=== PATIENT | female | born 1985 | race Native Hawaiian/Other Pacific Islander ===

== ENCOUNTER → 2024-10-13 13:23 | Outpatient (BNVA) | payer OTHER, SELFPAY | PROVIDERS: Visit Provider Surgery ==

== ENCOUNTER 2024-10-30 07:52 | Outpatient (AMB) | payer OTHER, SELFPAY ==
--- NOTE | 2024-10-30 10:56 | A.OFFVIS_ITS ---
VS Expanded 10/30/24 11:11 Height 5 ft 6 in Weight 231 lb BMI 37.3 Body Fat % 45.5 Body Fat Mass 105 Fat Free Mass 125.8 Visceral Fat Rating 11 Body Water % 39.1 Body Water Mass 90.2 Basal Metabolic Rate/Score 1,782 Intake Visit Reasons: [employer] BMI 37.3 Allergies No Known Allergies Allergy (Verified 10/30/24 10:56) Medication List - Last Reconciled 10/30/24 by Fab Russo MD albuterol sulfate 90 mcg/actuation 2 puffs inhalation Q6H PRN cetirizine 10 mg PO DAILY PRN HPI HPI [employer] SWL BMI 37.3: Details: Start time: 10.53am, End time: 11.45am ?I spent 47 minutes speaking with the patient on the phone plus an additional 5 minutes reviewing and updating records for a total of 52 minutes HPI Comments Details: Previous weight loss efforts: self diets Wakes up: 7am, sleeps: 11pm Breakfast: 8am (Gatorade protein bars, Atkins protein shakes) Lunch: 1pm (fast food) Dinner: 6pm (pasta, quinoa) Snacks: none Exercise: has home treadmill Fluids: Coffee: none, tea: Green tea daily (plain), soda: none, juice: Cranberry x1/month, ETOH: 2/month PFSH Medical History (Updated 10/30/24 @ 11:18 by Fab Russo MD) Back pain Asthma BMI 37.0-37.9, adult Obesity Telehealth Telehealth Telehealth Platform: Telephone Location of provider rendering services: practice address Location of patient: address on file Patient Identification confirmed using: Name, : Yes Telehealth method: voice only Patient verbally consented to treatment: Yes Patient verbally consented to billing insurance company: Yes Patient informed of any privacy concerns related to visit: Yes Minutes spent on Phone/Video with Pt.: 52 Assessment & Plan Assessment & Plan (1) Obesity: Code(s): E66.9 - Obesity, unspecified Category: Medical Qualifiers: Obesity type: due to excess calories Obesity classification: adult class 2 (BMI 35 - 39.9) Serious obesity comorbidity presence: without serious comorbidity Body mass index: BMI 37.0-37.9 Qualified Code(s): E66.812 - Obesity, class 2; E66.09 - Other obesity due to excess calories; Z68.37 - Body mass index [BMI] 37.0-37.9, adult Plan: 1.? Plan for lap sleeve gastrectomy. If diaphragmatic or ventral hernias are present at time of surgery, these will be repaired laparoscopically as well. I emphasized the importance of close follow-up, adherence to instructions and good communication. The surgery does not replace the need to change your lifestlyle which is the cause of the obesity problem. The surgery provides the motivation to try again to change your lifestyle, it reduces the appetite and make the transition to a better lifestyle easier and doubles the amount of weight you would lose compared to doing the lifestyle change without the surgery. You will need to be on a liquid diet with protein shakes for 2 weeks before surgery to maximize weight loss and boost your nutritional status to recover better from surgery and also for the first two weeks after surgery to let the stomach heal before we introduce other foods. After the first 2 weeks we will introduce protein bars and soft foods like scrambled eggs, cottage cheese and yogurt and after the 6th week will introduce meat, fish and cooked vegetables in small amounts. Over time you should be able to eat everything in small amounts. Side effects like nausea, vomiting, heartburn or abdominal pain are not common in the practice unless you are not following in the practice. This operation requires lifetime commitment to following in our practice and communication with me. You will much less weight and experience side effects if you don?t communicate or not following in the practice. Complications are rare and in our practice is about 1/10 of the national average. However, you can develop bleeding that may require transfusion (hasn?t happened for year in the practice), you may from complications (we did not have any deaths in the practice) and infections. Infections are usually a result of breakdown in communication or not understanding or following directions correctly. They are difficult to treat, they can happen during the first 6 weeks, they may require to be in the hospital for weeks or even months, not being able to eat by mouth and you may have drains and surgeries to try and correct the issue. Other risks and complications include possible conversion to an open procedure, leaks, small bowel obstruction, blood clots, cardiac, or pulmonary complications, as superintendent container terminal complications such as ulcers, insufficient weight loss and vitamin deficiencies. 2.? Nutritional counseling. Start with two 30gr protein Atkins Plus protein shakes (mix 4oz of Atkins Plus with 4oz low fat unsweetened almond milk each) at 8am-10am and 11am-1pm, 1 Gatorade protein bar at 2pm-4pm, dinner at 5pm (8 forks of protein and 8 forks of salad/vegetables), one more protein bar after dinner at 7pm-9pm. Another HALF protein bar at 10pm-11pm if you feel hungry. So you do 2 protein shakes, 2 to 2.5 protein bars and one meal per day. Meal to include lean meat (beef, fish, pork, turkey, chicken), or arabic yogurt, or egg whites, or beans with a salad with olive oil and fruits (berries, pears, apples, kiwi). Avoid salt, breads, potatoes, rice, pasta, desserts. 3. Each shake would be drunk slowly, like coffee in a period of 2 hours. 4. Cut each bar in 4 pieces and eat each piece in 30min ?to make each bar last 2 hours. 5. I emphasized the importance of measuring accurately the food portion and measure it when serving the food in plate 6. The meal portions include 8 full-size forks of meat and 8 full-size forks of salad. You always eat the meat portion but you can replace up to 4 forks for salad/vegetables with rice, potatoes or pasta, or a fruit ?if you like. The less you do it the better weight loss will be. 7. One full-size fork is what it can be scooped on the fork without falling aside and not what can be bit with the fork. Use regular forks like those you find in a typical restaurant. 8.? Please buy the body composition scale we discussed and send me weight measurements as soon as possible and then once a week. Always include your diet and exercise plan. 9. Start treadmill with an incline of 2.0 and speed of 3.0. Increase incline by 1 every 3 min to a max incline of 8.0, stay 3min at 8.0 and then return to 2.0 and repeat same steps until calorie goal is met. Goal is to burn 2000 calories per week on exercise, which means either 300 calories daily, or 400 calories 5 days per week, or 500 calories 4 days per week, or 650 calories 3 days per week. 10. Goal is to lose at least 1.5-2lbs per week 11. Goal to lose 10% of your weight before surgery, which is about 23lbs. Ultimate weight goal: 208lbs before surgery 12. Please follow the diet plan exactly without any change. If you don't like something about the plan or you feel hungry you need to communicate with me so I can help you revise the plan. You should not change the plan yourself 13. To be scheduled for EGD to assess the stomach's anatomy. The possibility of biopsies was discussed. Patient needs to avoid use of NSAIDs and aspirin for 1 week prior to EGD. You must be on liquids only the day before your endoscopy. Risks of perforation and bleeding was discussed with the patient. This will be an outpatient procedure with IV sedation. Orders: Orders Insulin Today E66.9 - Obesity, unspecified, J45.909 - Unspecified asthma, uncomplicated, Z68.37 - Body mass index [BMI] 37.0-37.9, adult IRON PROFILE Today E66.9 - Obesity, unspecified, J45.909 - Unspecified asthma, uncomplicated, Z68.37 - Body mass index [BMI] 37.0-37.9, adult Comprehensive Met. Panel Today E66.9 - Obesity, unspecified, J45.909 - Unspecified asthma, uncomplicated, Z68.37 - Body mass index [BMI] 37.0-37.9, adult Vitamin B12 and Folate Today E66.9 - Obesity, unspecified, J45.909 - Unspecified asthma, uncomplicated, Z68.37 - Body mass index [BMI] 37.0-37.9, adult Zinc Today E66.9 - Obesity, unspecified, J45.909 - Unspecified asthma, uncomplicated, Z68.37 - Body mass index [BMI] 37.0-37.9, adult Vitamin B1 Today E66.9 - Obesity, unspecified, J45.909 - Unspecified asthma, uncomplicated, Z68.37 - Body mass index [BMI] 37.0-37.9, adult Vitamin A Today E66.9 - Obesity, unspecified, J45.909 - Unspecified asthma, uncomplicated, Z68.37 - Body mass index [BMI] 37.0-37.9, adult Vitamin D 25-OH Total Today E66.9 - Obesity, unspecified, J45.909 - Unspecified asthma, uncomplicated, Z68.37 - Body mass index [BMI] 37.0-37.9, adult US abdomen comp w elastography Today E66.9 - Obesity, unspecified, J45.909 - Unspecified asthma, uncomplicated, Z68.37 - Body mass index [BMI] 37.0-37.9, adult Hemoglobin A1c Today E66.9 - Obesity, unspecified, J45.909 - Unspecified asthma, uncomplicated, Z68.37 - Body mass index [BMI] 37.0-37.9, adult H Pylori Breath Test Today E66.9 - Obesity, unspecified, J45.909 - Unspecified asthma, uncomplicated, Z68.37 - Body mass index [BMI] 37.0-37.9, adult Complete Blood Count Auto Diff Today E66.9 - Obesity, unspecified, J45.909 - Unspecified asthma, uncomplicated, Z68.37 - Body mass index [BMI] 37.0-37.9, adult Lipid Panel Today E66.9 - Obesity, unspecified, J45.909 - Unspecified asthma, uncomplicated, Z68.37 - Body mass index [BMI] 37.0-37.9, adult C Reactive Protein Today E66.9 - Obesity, unspecified, J45.909 - Unspecified asthma, uncomplicated, Z68.37 - Body mass index [BMI] 37.0-37.9, adult TSH reflex Free T4 Today E66.9 - Obesity, unspecified, J45.909 - Unspecified asthma, uncomplicated, Z68.37 - Body mass index [BMI] 37.0-37.9, adult Ferritin Today E66.9 - Obesity, unspecified, J45.909 - Unspecified asthma, uncomplicated, Z68.37 - Body mass index [BMI] 37.0-37.9, adult XR chest 2V Today E66.9 - Obesity, unspecified, J45.909 - Unspecified asthma, uncomplicated, Z68.37 - Body mass index [BMI] 37.0-37.9, adult ECG 12 lead EKG Today E66.9 - Obesity, unspecified, J45.909 - Unspecified asthma, uncomplicated, Z68.37 - Body mass index [BMI] 37.0-37.9, adult FL upper GI w air Today E66.9 - Obesity, unspecified, J45.909 - Unspecified asthma, uncomplicated, Z68.37 - Body mass index [BMI] 37.0-37.9, adult Referrals Behavioral Health Referral E66.9 - Obesity, unspecified, J45.909 - Unspecified asthma, uncomplicated, Z68.37 - Body mass index [BMI] 37.0-37.9, adult Nutrition/Dietitian Referral E66.9 - Obesity, unspecified, J45.909 - Unspecified asthma, uncomplicated, Z68.37 - Body mass index [BMI] 37.0-37.9, adult
[2024-10-30 11:11] VITALS: BMI 37.3
== END 2024-10-30 11:46 | disposition home or self-care (01) ==
LOC: HO.HBS 07:52
PROVIDERS: Visit Provider Surgery
DX: E66.812 Obesity, class 2 (principal); Z68.37 Body mass index [BMI] 37.0-37.9, adult
CPT/HCPCS: 98010

== ENCOUNTER → 2024-11-10 13:17 | Outpatient (BNVA) | payer OTHER, SELFPAY | PROVIDERS: Visit Provider Physician Assistant Surgical ==

== ENCOUNTER 2024-12-11 08:08 | Outpatient (REF) | payer OTHER, SELFPAY ==
--- NOTE | ~2024-12-11 | US_ITS ---
EXAMINATION: US ABDOMEN COMPLETE WITH LIVER ELASTOGRAPHY HISTORY: E66.9 - Obesity, unspecified TECHNIQUE: Real-time grayscale ultrasound imaging of the abdomen was performed and images were reviewed. COMPARISON: There are no prior studies for comparison. FINDINGS: Liver: The right lobe of the liver measures 17.2 cm in size. The left lobe of the liver measures 7.1 cm in size. The liver demonstrates normal homogeneous echotexture. No focal mass or intrahepatic biliary ductal dilatation is identified. There is normal hepatopedal flow in the portal vein. Ultrasound elastography of the liver was performed with 10 separate measurements of the liver parenchyma with the patient in the supine position. Measurements were obtained approximately 2 cm below Isabel's capsule and perpendicular to the capsule. Images are of satisfactory quality. The median shear wave velocity is 1.32 m/s. The interquartile range/median (IQR/median) is 0.08. Gallbladder and biliary tree: The gallbladder is unremarkable, without evidence of calculi, wall thickening, or pericholecystic fluid. There is no sonographic Beasley sign. The common bile duct is normal in caliber measuring 3 mm. Kidneys: The right kidney measures 10.4 cm in length. The left kidney measures 10.6 cm in length. The kidneys are unremarkable, without evidence of masses, hydronephrosis, or calculi. Pancreas: There is limited visualization of the pancreas. Spleen: The spleen is normal in size and contour, measuring 8.7 cm in length. Abdominal aorta and inferior vena cava: The visualized portions of the abdominal aorta and inferior vena cava are normal in caliber. There is no free fluid in the abdomen. US/US abdomen comp w elastography IMPRESSION: Mild enlargement of the right lobe of the liver. Otherwise unremarkable abdominal ultrasound. The median shear wave velocity in the liver is 1.32 m/s, corresponding to a median liver stiffness of 5.34 kPa. The IQR/median value is 0.08. This is indicative of a quality data set. Findings are indicative of a low elastography value which rules out advanced chronic liver disease in asymptomatic patients. REFERENCE: Society of Radiologists in Ultrasound Liver Stiffness Thresholds (2020): LIVER STIFFNESS THRESHOLDS: *Shear wave velocity less than 1.3 m/s (Liver Stiffness equal or less than 5 kPa): High probability of being normal. *Shear wave velocity less than 1.7 m/s (Liver Stiffness less than 9 kPa): In the absence of other known clinical signs, rules out compensated advanced chronic liver disease. *Shear wave velocity between 1.7-2.1 m/s (Liver Stiffness 9-13 kPa): Suggestive of compensated advanced chronic liver disease but need further test for confirmation. *Shear wave velocity between 2.1-2.4 m/s (Liver Stiffness 13-17 kPa): Rules in compensated advanced chronic liver disease. *Shear wave velocity greater than 2.4 m/s (Liver Stiffness over 17 kPa): Suggestive of clinically significant portal hypertension. QUALITY OF DATA SET: *IQR/Median value equal or less than 0.15 implies a quality data set. *IQR/Median value over 0.15 implies a poor quality data set. SIGNIFICANT CHANGE FROM PRIOR EXAM: Significant change if liver stiffness measurement is 10% or greater from prior exam. OTHER CONSIDERATIONS: The stage of liver fibrosis may be overestimated in the setting of acute hepatitis, liver inflammation, elevated liver function tests, hepatic vascular congestion, obstructive cholestasis, non-fasting state, and infiltrative diseases such as amyloidosis and lymphoma. In some patients with NAFLD, the liver stiffness thresholds for compensated advanced chronic liver disease may be lower. In causes other than viral hepatitis and NAFLD, liver stiffness thresholds are not well established. Electronically signed by: Vel Everett MD 12/12/2024 08:09 AM [facility]
== END 2024-12-11 08:09 | disposition home or self-care (01) ==
LOC: HO.US 08:08
PROVIDERS: Visit Provider Surgery
DX: E66.9 Obesity, unspecified (principal); Z68.37 Body mass index [BMI] 37.0-37.9, adult; J45.909 Unspecified asthma, uncomplicated
CPT/HCPCS: 76700; 76981

== ENCOUNTER → 2024-12-11 08:10 | Outpatient (BNV) | payer OTHER, SELFPAY | PROVIDERS: Visit Provider Radiology Diagnostic Radiology | DX: E66.9 Obesity, unspecified (principal); Z68.37 Body mass index [BMI] 37.0-37.9, adult | CPT/HCPCS: 76700 ==

== ENCOUNTER 2025-05-12 16:31 | Outpatient (AMB) | payer OTHER, SELFPAY ==
--- NOTE | 2025-05-12 16:32 | A.OFFPC_ITS ---
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 Asthma: - History of asthma managed with albuter ol as needed, no recent exacerbations, and no history of intubation. Seasonal allergies: - Reports seasonal allergies, managed sy mptomatically. Bunions: - Reports long-standing bunions on both feet, exacerbated by wearing heels, causing discomfort. Class 2 obesity Currently arteries appetite for weight loss being managed in a weight loss clinic comes in with paperwork for medical clearance for a BBL on to be performed in [facility] Review of Systems - Respiratory: Reports asthma, denies re cent exacerbations or intubation. - Allergic/Immunologic: Reports seasonal allergies. - Musculoskeletal: Reports bunions causi ng discomfort, denies joint pain or leg swelling. - Genitourinary: Reports irregular menst rual cycles post-contraceptive use, denies pain. - General: Denies sleep disturbances, sugey wel or bladder issues. 10-point ROS reviewed and negative excep t as noted in HPI Past Medical History - Asthma, managed with albuterol as need ed. - Seasonal allergies, managed symptomati massimo. Health Maintenance - Cervical cancer screening recommended due to age. - STI screening recommended due to sexua l activity. - Comprehensive blood work ordered inclu ding CBC, CMP, lipid panel, hemoglobin A1c, TSH, vitamin D, folate, B12, and infectious disease screening (Hep B, Hep C, HIV). Physical Exam General: Well-appearing, in no acute distress. Vital signs: Within normal limits. HEENT: Normocephalic, atraumatic. PERRLA, EOMI. Conjunctiva clear, sclera anicteric. Oropharynx clear, mucous membranes moist. TMs intact bilaterally. Neck: Supple, no lymphadenopathy, no thyromegaly, no JVD or carotid bruits. Cardiovascular: RRR, normal S1/S2, no murmurs, rubs, or gallops. Peripheral pulses 2+ and symmetric. No edema. Respiratory: Lungs clear to auscultation bilaterally, no wheezes, rales, or rhonchi. Normal effort. Abdomen: Soft, non-tender, non-distended. Normoactive bowel sounds. No hepatosplenomegaly, no masses. MSK: Full range of motion, no joint swelling or deformity. Normal gait. Reports bunions on both feet, with the right foot being worse. Skin: Warm, dry, intact. No rashes, lesions, or pallor. Neuro: Alert and oriented x3. Cranial nerves II-XII intact. Strength 5/5 throughout. Sensation intact. Reflexes 2+ symmetric. Normal coordination and gait. Psych: Appropriate mood and affect. Normal judgment and insight. Plan 1. Asthma - Continue current management with albut marcio as needed. Monitor for any exacerbations. 2. Seasonal Allergies - Continue symptomatic management of sea robert allergies. 3. Bunions - Referral to podiatry for further evalu ation and management. 4. Preventative Care - Cervical cancer screening and STI scre ening recommended. Comprehensive blood work ordered to establish baseline health status. Discussion Notes I discussed the importance of preventative care, including cervical cancer and STI screenings, given the patient's age and sexual activity. We reviewed the management of her asthma and seasonal allergies, emphasizing the continuation of current treatments. I also addressed her concerns about bunions and provided a r eferral to podiatry for further evaluation. We discussed the comprehensive blood work ordered to assess her overall health status. I advised her on the risks associated with surgery and the importance of a multidisciplinary approach to weight management. Patient was informed and verbally consented to the use of an ambient scribe for clinic note documentation during this visit. Patient Instructions - Continue using albuterol as needed for asthma management. - Follow up with podiatry for bunion sergey luation and management. - Schedule cervical cancer and STI scree nings as recommended. - Complete the ordered blood work to est ablish a baseline health status. [facility] Medical History Back pain Asthma BMI 37.0-37.9, adult Obesity Family History (Updated 05/12/25 @ 16:33 by Sarita Franz MA) Father No problems noted. Mother No problems noted. Social History (Updated 05/12/25 @ 16:34 by Sarita Franz MA) Housing: House Alcohol intake: current Alcohol intake frequency: holidays/special occasions only Patient Tobacco Use Status: Never used Tobacco service: No Current occupational status: employed Cognitive needs: No Hearing needs: No Vision needs: Yes (rx glasses) Questionnaire PHQ-9 Over the last 2 weeks, how often have you been bothered by any of the following problems? 1. Little interest or pleasure in doing things: not at all 2. Feeling down, depressed, or hopeless: not at all 3. Trouble falling or staying asleep, or sleeping too much: not at all 4. Feeling tired or having little energy: more than half the days 5. Poor appetite or overeating: not at all 6. Feeling bad about yourself - or that you are a failure or have let yourself or your family down: not at all 7. Trouble concentrating on things, such as reading the newspaper or watching television: not at all 8. Moving or speaking so slowly that other people could have noticed. Or the opposite - being so fidgety or restless that you have been moving around a lot more than usual: not at all 9. Thoughts that you would be better off or of hurting yourself in some way: not at all Total score: 2 Depression Screening Interpretation: Negative Depression Screening Done: Yes Source: Developed by Drs. Vel Ortiz, Jenny Woodward, Pablo Lindsay and colleagues, with an educational staci from [employer]. Thrive Questionnaire Date Thrive assessed: 05/06/25 I am a: Patient What is your living situation today?: I have a steady place to live Within the past 12 months, did the food you bought not last and you didn't have the money to get more?: Never true Within the past 12 months, did you worry whether your food would run out before you got money to buy more?: Sometimes True Do you have trouble paying for medicines?: No Do you have trouble getting transportation to medical appointments?: No Do you have trouble paying your heating and electricity bill?: No Do you have trouble taking care of your child, family member or friend?: No Do you have trouble with day-to-day activities such as bathing, preparing meals, shopping, managing finances, etc.?: No Are you currently unemployed and looking for a job?: No Are you interested in more education?: Yes Please select the resources that you would like help with: None Currently or been in a relationship where the following occur: No concerns reported THRIVE Score: 1 AUDIT C Alcohol Use Questionnaire (AUDIT-C) 1. How often do you have a drink containing alcohol?: Monthly or less 2. How many drinks containing alcohol do you have on a typical day when you are drinking?: 1 or 2 3. How often do you have six or more drinks on one occasion?: Monthly Total Score: 3 EMMA-7 AMB Questionnaire EMMA-7 Date EMMA - 7 assessed: 05/12/25 Feeling nervous, anxious, or on edge: 0 = Not at all Not being able to stop or control worryin = Not at all Worrying too much about different things: 0 = Not at all Trouble relaxin = Not at all Being so restless that it is hard to sit still: 0 = Not at all Becoming easily annoyed or irritable: 0 = Not at all Feeling afraid as if something awful might happen: 0 = Not at all Total EMMA-7 score (0-4 normal; 5-9 mild; 10-14 moderate; 15-21 severe): 0 Source: Developed by Drs. Vel Ortiz, Jenny Woodward, Pablo Lindsay and colleagues, with an educational staci from [employer]. Physical exam (Primary Care) BMI result Body Mass Index 32.7 Tobacco/Smoking Status: Tobacco use Status Tobacco use date assessed 05/12/25 05/12/25 16:34 Patient Tobacco Use Status Never used Tobacco 05/12/25 16:34 PHQ-9: PHQ-9 Score PHQ-9: Total score 2 05/12/25 16:34 Depression Screening Interpretation: Negative Thrive Assessment: Date of Thrive Assessment Date Thrive assessed 05/06/25 05/12/25 16:34 Currently or been in a relationship where the following occur: No concerns reported Coding Level of Care Code New Pt Level 3 (81067) Diagnoses Asthma J45.909 Establishing care with new doctor, encounter for Z76.89 Encounter for screening, unspecified Z13.9 Screening for diabetes mellitus Z13.1 Screening for hypertension Z13.6 Screening for lipoid disorders Z13.220 Screening for depression Z13.31 Counseling, unspecified Z71.9 Routine screening for STI (sexually transmitted infection) Z11.3 Screening for HIV (human immunodeficiency virus) Z11.4 Class 2 obesity E66.812 Encounter for preoperative assessment Z01.818 Bilateral bunions M21.611; M21.612 Assessment & Plan Assessment & Plan (1) Asthma: Code(s): J45.909 - Unspecified asthma, uncomplicated Category: Medical (2) Establishing care with new doctor, encounter for: Code(s): Z76.89 - Persons encountering health services in other specified circumstances (3) Encounter for screening, unspecified: Code(s): Z13.9 - Encounter for screening, unspecified (4) Screening for diabetes mellitus: Code(s): Z13.1 - Encounter for screening for diabetes mellitus (5) Screening for hypertension: Code(s): Z13.6 - Encounter for screening for cardiovascular disorders (6) Screening for lipoid disorders: Code(s): Z13.220 - Encounter for screening for lipoid disorders (7) Screening for depression: Code(s): Z13.31 - Encounter for screening for depression (8) Counseling, unspecified: Code(s): Z71.9 - Counseling, unspecified (9) Routine screening for STI (sexually transmitted infection): Code(s): Z11.3 - Encounter for screening for infections with a predominantly sexual mode of transmission (10) Screening for HIV (human immunodeficiency virus): Code(s): Z11.4 - Encounter for screening for human immunodeficiency virus [HIV] (11) Class 2 obesity: Code(s): E66.812 - Obesity, class 2 (12) Encounter for preoperative assessment: Code(s): Z01.818 - Encounter for other preprocedural examination Category: Medical (13) Bilateral bunions: Code(s): M21.611 - Bunion of right foot; M21.612 - Bunion of left foot Plan Orders: Orders Vitamin B6 Today Z13.9 - Encounter for screening, unspecified, Z76.89 - Persons encountering health services in other specified circumstances UA CC w/rflx Micro + Cult Today Z13.9 - Encounter for screening, unspecified, Z76.89 - Persons encountering health services in other specified circumstances TSH reflex Free T4 Today Z13.9 - Encounter for screening, unspecified, Z76.89 - Persons encountering health services in other specified circumstances Hepatitis C Antibody Today Z13.9 - Encounter for screening, unspecified, Z76.89 - Persons encountering health services in other specified circumstances Comprehensive Met. Panel Today Z13.9 - Encounter for screening, unspecified, Z76.89 - Persons encountering health services in other specified circumstances Hemoglobin A1c Today Z13.9 - Encounter for screening, unspecified, Z76.89 - Persons encountering health services in other specified circumstances Hepatitis B Surface Antibody Today Z13.9 - Encounter for screening, unspecified, Z76.89 - Persons encountering health services in other specified circumstances XR chest 2V Today Z01.818 - Encounter for other preprocedural examination Partial Thromboplastin Time Today Z01.818 - Encounter for other preprocedural examination Vitamin B1 Today Z13.9 - Encounter for screening, unspecified, Z76.89 - Persons encountering health services in other specified circumstances Vitamin B2 (Riboflavin) Today Z13.9 - Encounter for screening, unspecified, Z76.89 - Persons encountering health services in other specified circumstances Zinc Today Z13.9 - Encounter for screening, unspecified, Z76.89 - Persons encountering health services in other specified circumstances Vitamin D 1,25 dihydroxy Today Z13.9 - Encounter for screening, unspecified, Z76.89 - Persons encountering health services in other specified circumstances Vitamin B12 and Folate Today Z13.9 - Encounter for screening, unspecified, Z76.89 - Persons encountering health services in other specified circumstances Lipid Panel Today Z13.9 - Encounter for screening, unspecified, Z76.89 - Persons encountering health services in other specified circumstances Magnesium Today Z13.9 - Encounter for screening, unspecified, Z76.89 - Persons encountering health services in other specified circumstances Complete Blood Count Auto Diff Today Z13.9 - Encounter for screening, unspecified, Z76.89 - Persons encountering health services in other specified circumstances Hepatitis B Surface Antigen Today Z13.9 - Encounter for screening, unspecified, Z76.89 - Persons encountering health services in other specified circumstances HIV Ab/Ag Today Z13.9 - Encounter for screening, unspecified, Z76.89 - Persons encountering health services in other specified circumstances Prothrombin Time INR Today Z01.818 - Encounter for other preprocedural examination Referrals Podiatry Referral M21.611 - Bunion of right foot, M21.612 - Bunion of left foot
[2025-05-12 16:36] VITALS: BP 92/74; PULSE 93; RESP 16; TEMP 36.6; O2SAT 98; BMI 32.7
== END 2025-05-12 17:12 | disposition home or self-care (01) ==
LOC: HO.HMCFMS 16:31
PROVIDERS: Visit Provider Student in an Organized Health Care Education/Training Program
DX: J45.909 Unspecified asthma, uncomplicated (principal); E66.812 Obesity, class 2; M21.611 Bunion of right foot; M21.612 Bunion of left foot; Z01.818 Encounter for other preprocedural examination

== ENCOUNTER 2025-05-14 09:08 | Outpatient (AMB) | payer OTHER, SELFPAY ==
[2025-05-14 09:16] VITALS: BMI 31.8
--- NOTE | 2025-05-14 09:16 | A.OFFVIS_ITS ---
Vital Signs 05/14/25 09:16 Height 5 ft 6 in Weight 197 lb BMI 31.8 Intake Visit Reasons: Feet Pain Intake Note: Christopher is a 39 year old female who presents today as a new patient for an evaluation of her Bilateral bunion and foot pain. Pt states pain is located where her bunions are. She reports she has had the bunions for about 10 years. Patient has not tried any treatment for her bunions at this time and she has no previous imaging. Allergies No Known Allergies Allergy (Verified 05/14/25 09:17) Medication List - Last Reconciled 05/14/25 by Nathan Em DPM albuterol sulfate 90 mcg/actuation 2 puffs inhalation Q6H PRN cetirizine 10 mg PO DAILY PRN tirzepatide (weight loss) (Zepbound) 15 mg (0.5 mL) subcut QWEEK HPI HPI Feet Pain: Details: The patient is a 39-year-old female presenting with painful bunions bilateral feet, right foot worse than left. The bunions have been causing pain, leading her to walk with an altered gait, especially when wearing heels. There is no history of ankle sprains or double-jointedness, and the patient does not report any other medical conditions. The patient has not had any prior x-rays or surgical interventions for the bunions. She has explored non-surgical options such as bunion sleeves, however she has not tried them yet. 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 - Substance use: Occasional smoking, primarily hookah at social events, approximately once a month. [facility] Medical History (Updated 05/14/25 @ 09:45 by Nathan Em DPM) Encounter for preoperative assessment Back pain Asthma BMI 37.0-37.9, adult Obesity Family History (Updated 05/12/25 @ 16:33 by Sarita Franz MA) Father No problems noted. Mother No problems noted. Social History (Updated 05/12/25 @ 16:41 by Sarita Franz MA) Housing: House Alcohol intake: current Alcohol intake frequency: holidays/special occasions only Patient Tobacco Use Status: Never used Tobacco service: No Current occupational status: employed Cognitive needs: No Hearing needs: No Vision needs: Yes (rx glasses) Review of Systems Const All systems reviewed & are unremarkable except as noted in HPI and below Physical Exam Vital Signs: BMI result Body Mass Index 31.8 Extrem Other: *Bilateral Lower Extremity Focused Exam Vascular: DP/PT 2/4, CFT<3s to digits, TG warm to cool, no pedal edema Derm: No open wounds or lacerations. Neuro: Protective sensation grossly intact to bilateral lower extremities. MSK: Prominent medial eminence noted bilateral feet at the first metatarsop halangeal (MTP) joint without tenderness on palpation. Tracking hallux valgus deformity. Right 1st Metatarsophalangeal joint ROM: 75 ?. No crepitus. No pain on end range of motion. No Hypermobile right first ray. Left 1st Metatarsophalangeal joint ROM: 75 ?. No crepitus. No pain on end range of motion. No Hypermobile left first ray. No forefoot adductus noted. No digital deformities. Ankle inversion 3-1 bilateral lower extremities. Assessment & Plan Assessment & Plan (1) Hallux valgus (acquired), right foot: Code(s): M20.11 - Hallux valgus (acquired), right foot Category: Medical Plan: * Discussed the etiology of her bunions. * Rx right foot x-ray. * Discussed treatment options including bunion sleeves, orthotics, and eventually surgical intervention if her pain persists. * Discussed postop protocol for postop bunionectomy which includes protected weight-bearing in a surgical shoe, no high impact activity for at least 3 months, and likely would be out of work for at least 1 month. (2) Hallux valgus (acquired), left foot: Code(s): M20.12 - Hallux valgus (acquired), left foot Category: Medical Plan: * Discussed the etiology of her bunions. * Rx left foot x-ray. (3) Ankle ligament laxity: Code(s): M24.273 - Disorder of ligament, unspecified ankle Category: Medical Qualifiers: Laterality: unspecified laterality Qualified Code(s): M24.273 - Disorder of ligament, unspecified ankle Plan: * Patient has increased inversion to bilateral ankles. She denies history of sprains. She denies any unsteady gait due to her ankles, however it will be monitored as a potential etiology of her unsteady gait while wearing heels. She may require physical therapy versus further treatment in the future. Orders: Orders XR Foot Guillaume 3V Today M20.11 - Hallux valgus (acquired), right foot, M20.12 - Hallux valgus (acquired), left foot Coding Level of Care Code New Pt Level 3 (89645) Diagnoses Hallux valgus (acquired), right foot M20.11 Hallux valgus (acquired), left foot M20.12 Ligamentous laxity of ankle, unspecified laterality M24.273 Laterality: unspecified laterality Time Spent (min) 30
== END 2025-05-14 09:34 | disposition home or self-care (01) ==
LOC: HO.HPODS 09:09
PROVIDERS: Visit Provider Student in an Organized Health Care Education/Training Program
DX: M20.11 Hallux valgus (acquired), right foot (principal); M20.12 Hallux valgus (acquired), left foot; M24.273 Disorder of ligament, unspecified ankle
CPT/HCPCS: 99203

== ENCOUNTER 2025-05-14 09:08 | Outpatient (REF) | payer OTHER, SELFPAY ==
--- NOTE | ~2025-05-14 | XR_ITS ---
EXAMINATION: XR FOOT, GUILLAUME 3V CLINICAL INFORMATION: M20.12 - Hallux valgus (acquired), left foot COMPARISON: None available. TECHNIQUE: AP, lateral, and oblique views of each foot. FINDINGS: RIGHT FOOT: No fracture, dislocation, or suspicious bone lesion. There is mild hallux valgus. Joint spaces are preserved. Alignment is otherwise normal. Normal plantar arch. The midfoot and hindfoot appear normal. There is a tiny plantar calcaneal spur. There is no soft tissue abnormality. LEFT FOOT: No fracture, dislocation, or suspicious bone lesion. There is mild hallux valgus. Joint spaces are preserved. Alignment is otherwise normal. Normal plantar arch. The midfoot and hindfoot appear normal. There is a tiny plantar calcaneal spur. There is no soft tissue abnormality. XR/XR Foot Guillaume 3V IMPRESSION: 1. No acute findings of either foot. Mild hallux valgus bilaterally. Electronically signed by: Darrell Larkin MD 05/14/2025 11:51 AM EDT
--- NOTE | ~2025-05-14 | XR_ITS ---
EXAMINATION: XR CHEST CLINICAL INFORMATION: Z01.818 - Encounter for other preprocedural examination COMPARISON: None available. TECHNIQUE: 2 views of the chest were obtained. FINDINGS: The cardiac, hilar, and mediastinal contours are normal. The lungs are clear bilaterally. There is no pneumothorax or pleural effusion. There is no focal osseous or soft tissue abnormality. XR/XR chest 2V IMPRESSION: Normal chest. Electronically signed by: Darrell Larkin MD 05/14/2025 11:46 AM EDT
[2025-05-14 10:54] LABS: MANUAL DIFF FLAG NO
[2025-05-14 11:01] LABS: Hematocrit 38.6 % (37.0-47.0); Hemoglobin 12.9 g/dl (12.0-16.0); Imm Gran Abs Auto 0.01 X10*3/uL (0.00-0.03); Imm Gran Pct Auto 0.2 % (0.0-0.4); Lymphocytes Absolute Auto 1.1 X10*3/uL (1.2-4.9); Mean Corpuscular HGB Conc 33.4 g/dl (31.0-35.0); Mean Corpuscular Hemoglobin 30.9 pg (27.0-33.0); Mean Corpuscular Volume 92.6 fL (80.0-98.0); NRBC Abs Auto 0.000 X10*3/uL (0.0-0.012); NRBC Pct Auto 0.0 /100WBC (0.0-0.2); Platelet Count 270 X10*3/uL (160-400); Red Blood Count 4.17 X10*6/uL (4.20-5.50); White Blood Count 4.3 X10*3/uL (4.8-10.8)
[2025-05-14 11:05] LABS: Total Hemoglobin (HGBA1C) 3376.9178 umol/L
[2025-05-14 11:10] LABS: INTERNATIONAL NORM RATIO 0.9 (0.9-1.1); Prothrombin Time 10.8 SEC (10.9-12.4)
[2025-05-14 11:12] LABS: Partial Thromboplastin Time 29.4 SEC (26.7-34.1)
[2025-05-14 11:37] LABS: Alanine Aminotransferase 18 U/L (0-31); Albumin Level 3.9 g/dL (3.5-5.0); Alkaline Phosphatase 43 U/L (39-117); Anion Gap 6 (12-20); Aspartate Amino Transferase 18 U/L (5-31); Blood Urea Nitrogen 10 mg/dL (9-16); Calcium 8.9 mg/dL (8.4-10.2); Carbon Dioxide 31 mmol/L (22-29); Chloride 108 mmol/L (96-108); Cholesterol 154 mg/dL (<200); Estimated Glomerular Filt Rate > 60; HDL Cholesterol 44 mg/dL (>40); Magnesium 2.0 mg/dL (1.6-2.6); Potassium 4.4 mmol/L (3.3-5.1); Sodium 141 mmol/L (135-145); Total Protein 5.9 g/dL (6.5-8.0); Triglycerides 51 mg/dL (<150)
[2025-05-14 11:42] LABS: HBS Num1 6.85 mIU/mL (0-7.99); HBsAGNum1 0.34 S/CO (0.00-0.99); HIV Num 1 0.05 S/CO (0.00-0.99); Hepatitis B Surface Antigen Negative (Negative); ~HepC Num1 0.10 S/CO (0.00-0.79); ~Hepatitis B Surface Antibody NONREACTIVE (Nonreactive); ~Hepatitis C Antibody Nonreactive (Nonreactive)
[2025-05-14 11:45] LABS: Appearance Urine Clear; Glucose Urine UA Negative (Negative); PH 8.0 (5.0-9.0); Specific Gravity - Urine 1.010 (1.005-1.025); UMIC TRIGGER UACC YES
[2025-05-14 11:55] LABS: Folate > 20.0 ng/mL (> or = 4.0); Vitamin B12 698 pg/mL (200-900)
[2025-05-18 18:59] LABS: VITAMIN D (1,25 OH) D3 48 pg/mL; Vit D (1,25-Dihydroxy) Total 48 pg/mL (18-72); Vitamin D (1,25 OH) D2 <8 pg/mL
== END 2025-05-14 09:09 | disposition home or self-care (01) ==
LOC: HO.HKASLDS 09:08
PROVIDERS: Visit Provider Student in an Organized Health Care Education/Training Program
DX: M20.11 Hallux valgus (acquired), right foot (principal); M20.12 Hallux valgus (acquired), left foot; M24.273 Disorder of ligament, unspecified ankle; Z51.81 Encounter for therapeutic drug level monitoring; Z11.4 Encounter for screening for human immunodeficiency virus [HIV]; Z01.818 Encounter for other preprocedural examination; Z13.89 Encounter for screening for other disorder; Z76.89 Persons encountering health services in other specified circumstances; Z79.899 Other long term (current) drug therapy
CPT/HCPCS: 36415; 71046; 73630; 80053; 80061; 81001; 82607; 82652; 82746; 83036; 83735; 84207; 84252; 84425; 84443; 84630; 85025; 85610; 85730; 86706; 86803; 87340; 87389

== ENCOUNTER → 2025-05-14 10:59 | Outpatient (BNV) | payer OTHER, SELFPAY | PROVIDERS: Visit Provider Radiology Diagnostic Radiology | DX: Z01.818 Encounter for other preprocedural examination (principal); M20.10 Hallux valgus (acquired), unspecified foot | CPT/HCPCS: 71046; 73630 ==

== ENCOUNTER → 2025-05-25 13:34 | Outpatient (REF) | payer OTHER, SELFPAY ==
--- NOTE | 2025-05-25 13:37 | ECG_ITS ---
Test Reason : E66.01 Blood Pressure : */* mmHG Vent. Rate : 83 BPM Atrial Rate : 83 BPM P-R Int : 132 ms QRS Dur : 96 ms QT Int : 350 ms P-R-T Axes : 43 36 36 degrees QTcB Int : 411 ms Normal sinus rhythm Normal ECG No previous ECGs available Referred By: Fab Russo Electronically Signed By: SELENE MCCANN MD
== END ==
LOC: HO.CARD 13:34
PROVIDERS: PCP Student in an Organized Health Care Education/Training Program; Visit Provider Surgery
DX: E66.9 Obesity, unspecified (principal); Z68.37 Body mass index [BMI] 37.0-37.9, adult; J45.909 Unspecified asthma, uncomplicated
CPT/HCPCS: 93005

== ENCOUNTER → 2025-05-25 13:37 | Outpatient (BNV) | payer OTHER, SELFPAY | PROVIDERS: PCP Student in an Organized Health Care Education/Training Program; Visit Provider Internal Medicine Cardiovascular Disease | DX: E66.01 Morbid (severe) obesity due to excess calories (principal); Z68.37 Body mass index [BMI] 37.0-37.9, adult | CPT/HCPCS: 93010 ==

== ENCOUNTER 2025-05-29 08:09 | Outpatient (REF) | payer OTHER, SELFPAY ==
--- NOTE | ~2025-05-29 | XR_ITS ---
EXAMINATION: X-ray bilateral ankles CLINICAL INFORMATION: Ligament disorder COMPARISON: None TECHNIQUE: Left ankle 3 views. Right ankle 3 views. FINDINGS: Left ankle: No evidence of acute fracture, dislocation or suspicious bony lesions. Ankle mortise appears maintained. No talar dome OCD. The subtalar articulation is maintained. Small plantar calcaneal spur. No abnormal soft tissue calcification. Right ankle: No evidence of acute fracture, dislocation or suspicious bony lesions. Ankle mortise is appears maintained. No talar dome OCD. Alignment is anatomic. No abnormal soft tissue calcification. Small plantar calcaneal spur. XR/XR Ankle Guillaume min 3V IMPRESSION: No acute osseous findings. Electronically signed by: Arnav Madden MD 05/29/2025 03:28 PM EDT
== END 2025-05-29 08:10 | disposition home or self-care (01) ==
LOC: HO.XRAY 08:09
PROVIDERS: Absent Provider Student in an Organized Health Care Education/Training Program; PCP Student in an Organized Health Care Education/Training Program; Visit Provider Student in an Organized Health Care Education/Training Program
DX: M24.273 Disorder of ligament, unspecified ankle (principal); J45.909 Unspecified asthma, uncomplicated; D72.819 Decreased white blood cell count, unspecified; D64.9 Anemia, unspecified; E56.9 Vitamin deficiency, unspecified; E66.811 Obesity, class 1; Z68.31 Body mass index [BMI] 31.0-31.9, adult
CPT/HCPCS: 73610

== ENCOUNTER 2025-05-29 08:09 | Outpatient (AMB) | payer OTHER, SELFPAY ==
[2025-05-29 09:09] VITALS: BP 115/55; PULSE 96; TEMP 36.1; O2SAT 99; BMI 31.1
--- NOTE | 2025-05-29 09:09 | MHC.PC.OV ---
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 Low White Blood Cell Count: - Value is 4.3, below the normal cutoff of 4.8. - Asymptomatic; continued monitoring planned. Low Red Blood Cell Count: - Level at 4.17, slightly under normal range of 4.20. - No symptoms reported by the patient. Overweight and Consideration for Bariatric Surgery: - Discussed options for weight management including gastric sleeve. - Interested in balancing weight with improved health outcomes. - Patient actively exploring options and benefits of surgery. Elevation of B Vitamins: - Patient has elevated B1 and B6 levels, noted in laboratory findings. - No health concerns associated with these levels identified. Review of Systems - General: Reports feeling tired; denies recent illness or fever. - Skin: Denies rashes, lesions, or pallor. - Neurological: Denies headaches or dizziness. - Psychological: Denies depression or anxiety; reports feeling tired. 10-point ROS reviewed and negative except as noted in HPI Past Medical History - History of asthma - Seasonal allergies - Bunions - Previous consideration for BBL (Syrian Butt Lift) Health Maintenance - Laboratory findings: Slightly low WBC and RBC levels; Elevated Vitamin B1 and B6; Normal B12. - Previous assessment for weight management and consideration of bariatric surgery. Physical Exam General: Well-appearing, in no acute distress, but appears tired. Vital signs: Within normal limits. HEENT: Normocephalic, atraumatic. PERRLA, EOMI. Conjunctiva clear, sclera anicteric. Oropharynx clear, mucous membranes moist. TMs intact bilaterally. Neck: Supple, no lymphadenopathy, no thyromegaly, no JVD or carotid bruits. Cardiovascular: RRR, normal S1/S2, no murmurs, rubs, or gallops. Peripheral pulses 2+ and symmetric. No edema. Respiratory: Lungs clear to auscultation bilaterally, no wheezes, rales, or rhonchi. Normal effort. Abdomen: Soft, non-tender, non-distended. Normoactive bowel sounds. No hepatosplenomegaly, no masses. MSK: Full range of motion, no joint swelling or deformity. Normal gait. Skin: Warm, dry, intact. No rashes, lesions, or pallor. Neuro: Alert and oriented x3. Cranial nerves II-XII intact. Strength 5/5 throughout. Sensation intact. Reflexes 2+ symmetric. Normal coordination and gait. Psych: Appropriate mood and affect, but appears a little down. Normal judgment and insight. Plan 1. Low White Blood Cell Count - Monitor and repeat labs to identify potential patterns. - Currently asymptomatic; no immediate intervention. 2. Low Red Blood Cell Count - Continue monitoring with periodic blood tests. - No treatment required at this stage. 3. Overweight And Consideration For Bariatric Surgery - Explore weight management including gastric sleeve. - Referral for nutritional counseling and potential surgery evaluation. 4. Elevation Of B Vitamins - Elevated B vitamins not a current health concern. - Maintain normal dietary habits. Discussion Notes I reviewed the patient's laboratory results and found slightly low white blood cell and red blood cell counts, both of which are asymptomatic. We discussed monitoring these levels and plan to repeat the labs to assess for any patterns. The patient's vitamin B1 and B6 levels were elevated, but I reassured her that this is not concerning. We deliberated her interest in bariatric surgery, specifically a gastric sleeve, for weight management. I advised her to gather more information through forums and consider a referral to nutritional counseling. She acknowledged the monitoring plan and agreed to follow up in six months or sooner if necessary. We also reviewed her overall health, confirming that there were no urgent issues. Patient was informed and verbally consented to the use of an ambient scribefor clinic note documentation during this visit. Patient Instructions - Be sure to follow up on labs as discussed. - Consider additional advice and information regarding weight loss surgery. - Continue routine check-ups and consultations as necessary. - Maintain a balanced diet and normal daily activities. - Seek immediate medical care if experiencing new or worsening symptoms. Total time spent caring for the patient today was 30 minutes. This includes time spent before the visit reviewing the chart, time spent documenting, and time spent reviewing laboratory results, diagnostic imaging, medications, performing a medically necessary evaluation, counseling on diagnoses, care coordination, ordering appropriate tests, ordering appropriate medications. [facility] Medical History (Updated 05/29/25 @ 11:20 by Aris Stockton MD) Class 1 obesity Encounter for preoperative assessment Back pain Asthma BMI 37.0-37.9, adult Obesity Family History Father No problems noted. Mother No problems noted. Social History Housing: House Alcohol intake: current Alcohol intake frequency: holidays/special occasions only Patient Tobacco Use Status: Current someday Tobacco user service: No Current occupational status: employed Cognitive needs: No Hearing needs: No Vision needs: Yes (rx glasses) Questionnaire PHQ-9 Over the last 2 weeks, how often have you been bothered by any of the following problems? 1. Little interest or pleasure in doing things: not at all 2. Feeling down, depressed, or hopeless: not at all 3. Trouble falling or staying asleep, or sleeping too much: not at all 4. Feeling tired or having little energy: more than half the days 5. Poor appetite or overeating: not at all 6. Feeling bad about yourself - or that you are a failure or have let yourself or your family down: not at all 7. Trouble concentrating on things, such as reading the newspaper or watching television: not at all 8. Moving or speaking so slowly that other people could have noticed. Or the opposite - being so fidgety or restless that you have been moving around a lot more than usual: not at all 9. Thoughts that you would be better off or of hurting yourself in some way: not at all Total score: 2 Depression Screening Interpretation: Negative Depression Screening Done: Yes Source: Developed by Drs. Vel Ortiz, Jenny WoodwardPablo and colleagues, with an educational staci from [employer]. Thrive Questionnaire Date Thrive assessed: 05/06/25 I am a: Patient What is your living situation today?: I have a steady place to live Within the past 12 months, did the food you bought not last and you didn't have the money to get more?: Never true Within the past 12 months, did you worry whether your food would run out before you got money to buy more?: Sometimes True Do you have trouble paying for medicines?: No Do you have trouble getting transportation to medical appointments?: No Do you have trouble paying your heating and electricity bill?: No Do you have trouble taking care of your child, family member or friend?: No Do you have trouble with day-to-day activities such as bathing, preparing meals, shopping, managing finances, etc.?: No Are you currently unemployed and looking for a job?: No Are you interested in more education?: Yes Please select the resources that you would like help with: None Currently or been in a relationship where the following occur: No concerns reported THRIVE Score: 1 AUDIT C Alcohol Use Questionnaire (AUDIT-C) 1. How often do you have a drink containing alcohol?: Monthly or less 2. How many drinks containing alcohol do you have on a typical day when you are drinking?: 1 or 2 3. How often do you have six or more drinks on one occasion?: Monthly Total Score: 3 EMMA-7 AMB Questionnaire EMMA-7 Date EMMA - 7 assessed: 05/29/25 Feeling nervous, anxious, or on edge: 0 = Not at all Not being able to stop or control worryin = Not at all Worrying too much about different things: 0 = Not at all Trouble relaxin = Not at all Being so restless that it is hard to sit still: 0 = Not at all Becoming easily annoyed or irritable: 0 = Not at all Feeling afraid as if something awful might happen: 0 = Not at all Total EMMA-7 score (0-4 normal; 5-9 mild; 10-14 moderate; 15-21 severe): 0 Source: Developed by Drs. Vel Ortiz, Pablo Slaughter and colleagues, with an educational staci from [employer]. Physical exam (Primary Care) Vital Signs: Last Vital Signs Temp 97.0 F 05/29/25 09:09 Pulse 96 05/29/25 09:09 BP 115/55 L 05/29/25 09:09 Pulse Ox 99 05/29/25 09:09 Oxygen Delivery Method Room Air 05/29/25 09:09 BMI result Body Mass Index 31.1 Tobacco/Smoking Status: Tobacco use Status Tobacco use date assessed 05/29/25 05/29/25 09:12 Patient Tobacco Use Status Current someday Tobacco 05/29/25 09:30 PHQ-9: PHQ-9 Score PHQ-9: Total score 2 05/29/25 09:27 Depression Screening Interpretation: Negative Thrive Assessment: Date of Thrive Assessment Date Thrive assessed 05/06/25 05/29/25 09:12 Currently or been in a relationship where the following occur: No concerns reported Coding Level of Care Code Est Pt Level 4 (96780) Diagnoses Asthma J45.909 Asthma severity: mild Asthma persistence: intermittent Leukopenia, unspecified type D72.819 Leukopenia type: unspecified Erythropenia D64.9 Hypovitaminosis E56.9 Class 1 obesity E66.811 Assessment & Plan Assessment & Plan (1) Asthma: Code(s): J45.909 - Unspecified asthma, uncomplicated Category: Medical Qualifiers: Asthma severity: mild Asthma persistence: intermittent (2) Leukopenia: Code(s): D72.819 - Decreased white blood cell count, unspecified Qualifiers: Leukopenia type: unspecified Qualified Code(s): D72.819 - Decreased white blood cell count, unspecified (3) Erythropenia: Code(s): D64.9 - Anemia, unspecified (4) Hypovitaminosis: Code(s): E56.9 - Vitamin deficiency, unspecified (5) Class 1 obesity: Code(s): E66.811 - Obesity, class 1 Category: Medical Plan Orders: Referrals Nutrition/Dietitian Referral E66.811 - Obesity, class 1
== END 2025-05-29 09:52 | disposition home or self-care (01) ==
LOC: HO.HMCFMS 08:10
PROVIDERS: PCP Student in an Organized Health Care Education/Training Program; Visit Provider Student in an Organized Health Care Education/Training Program
DX: J45.909 Unspecified asthma, uncomplicated (principal); D72.819 Decreased white blood cell count, unspecified; D64.9 Anemia, unspecified; E56.9 Vitamin deficiency, unspecified; E66.811 Obesity, class 1

== ENCOUNTER 2025-05-29 08:29 | Outpatient (AMB) | payer OTHER, SELFPAY ==
--- NOTE | 2025-05-29 08:35 | A.OFFVIS_ITS ---
Intake Visit Reasons: fu With x-ray Intake Note: Christopher is a 39 year old female who presents today for a follow up on her bilateral bunions and x ray results. Pt denies any pain at this time and she currently has no questions or concerns at this time. FINDINGS: RIGHT FOOT: No fracture, dislocation, or suspicious bone lesion. There is mild hallux valgus. Joint spaces are preserved. Alignment is otherwise normal. Normal plantar arch. The midfoot and hindfoot appear normal. There is a tiny plantar calcaneal spur. There is no soft tissue abnormality. LEFT FOOT: No fracture, dislocation, or suspicious bone lesion. There is mild hallux valgus. Joint spaces are preserved. Alignment is otherwise normal. Normal plantar arch. The midfoot and hindfoot appear normal. There is a tiny plantar calcaneal spur. There is no soft tissue abnormality. XR/XR Foot Guillaume 3V IMPRESSION: 1. No acute findings of either foot. Mild hallux valgus bilaterally. Allergies No Known Allergies Allergy (Verified 05/29/25 09:09) HPI HPI fu With x-ray: Details: The patient is a 39-year-old female presenting with painful bunions bilateral feet and history of frequent falls due to her ankle giving out. She received x- rays and is here to discuss surgical planning. She believestThe bunions have been causing pain, leading her to walk with an altered gait, especially when wearing heels. She does note that however at her ankles give out when she is walking or wearing heels. She was unable to describe how often she sprains her ankles as she has not worn heels in several months. 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 - patient states that she is independent and has no support other than her 18-year-old son. [facility] Medical History Encounter for preoperative assessment Back pain Asthma BMI 37.0-37.9, adult Obesity Family History Father No problems noted. Mother No problems noted. Social History Housing: House Alcohol intake: current Alcohol intake frequency: holidays/special occasions only Patient Tobacco Use Status: Current someday Tobacco user service: No Current occupational status: employed Cognitive needs: No Hearing needs: No Vision needs: Yes (rx glasses) Review of Systems Const All systems reviewed & are unremarkable except as noted in HPI and below Physical Exam Extrem Other: *Bilateral Lower Extremity Focused Exam Vascular: DP/PT 2/4, CFT<3s to digits, TG warm to cool, no pedal edema Derm: No open wounds or lacerations. Neuro: Protective sensation grossly intact to bilateral lower extremities. MSK: Prominent medial eminence noted bilateral feet at the first metata rsophalangeal (MTP) joint without tenderness on palpation. Tracking hallux valgus deformity. Right 1st Metatarsophalangeal joint ROM: 75 ?. No crepitus. No pain on end range of motion. No Hypermobile right first ray. Left 1st Metatarsophalangeal joint ROM: 75 ?. No crepitus. No pain on end range of motion. No appreciated Hypermobility left first ray. Functional hallux limitus on weight-bearing left foot. No forefoot adductus noted. No digital deformities. Ankle inversion 3-1 bilateral lower extremities. Negative anterior drawer sign. Results Reviewed Results Reviewed: Podiatry X-ray Read: 05/14/2025 X-ray right foot 3 views (AP, MO, Lateral) reviewed which shows 1st inter metatarsal angle 11 degrees, tibial sesamoid position 2, metatarsus adductus angle approximately 18. No joint space narrowing. Second through 4th digits are abducted. Bone density is within normal limits. No evidence of swelling, foreign body, or calcifications. I personally reviewed the imaging and my findings are listed above. Podiatry X-ray Read: 05/14/2025 X-ray left foot 3 views (AP, MO, Lateral) reviewed which shows 1st intermetatarsal angle of 6 degrees with metatarsus adductus angle of 23 degrees, true IM angle of approximately 15 degrees. Tibial sesamoid position of 2. No joint space narrowing. Second through 4th digits are abducted. Bone density is within normal limits. No evidence of swelling, foreign body, or calcifications. I personally reviewed the imaging and my findings are listed above. Assessment & Plan Assessment & Plan (1) Hallux valgus (acquired), right foot: Code(s): M20.11 - Hallux valgus (acquired), right foot Category: Medical Plan: * Reviewed right foot x-rays with the patient. * Discussed treatment options including bunion sleeves, orthotics, and eventually surgical intervention if her pain persists. Surgical treatment options would include MIS bunionectomy versus Lapidus correction. * Discussed postop protocol for MIS bunionectomy which includes protected weight-bearing in a surgical shoe, no high impact activity for at least 3 months, and likely would be out of work for at least 1 month. * Explained that since this is her right foot, she would not be able to drive for at least 4-6 weeks after surgery. (2) Hallux valgus (acquired), left foot: Code(s): M20.12 - Hallux valgus (acquired), left foot Category: Medical Plan: * Reviewed left foot x-rays with the patient. * Discussed treatment options including bunion sleeves, orthotics, and eventually surgical intervention if her pain persists. Surgical treatment options would include 1st tarsometatarsal joint fusion, 2nd through 3rd tarsometatarsal joint correction versus MS metatarsal osteotomies. * Discussed postop protocol would include nonweightbearing for 6 weeks followed by protected weight-bearing for another 4-6 weeks. No high impact activities for at least 3 months. (3) Ankle ligament laxity: Code(s): M24.273 - Disorder of ligament, unspecified ankle Category: Medical Qualifiers: Laterality: unspecified laterality Qualified Code(s): M24.273 - Disor asad of ligament, unspecified ankle Plan: * Rx bilateral x-rays, stress views * Patient will likely require an MRI for evaluation of lateral ankle ligaments. * Recommended ankle compression sleeves to be worn when ambulating. * Referred to physical therapy for strengthening and proprioceptive training. * Discussed surgical treatment in the form of lateral ankle reconstruction if conservative treatment options fail. * Follow up in 2 weeks (4) Metatarsus adductus of both feet: Code(s): Q66.221 - Congenital metatarsus adductus, right foot; Q66.222 - Congenital metatarsus adductus, left foot Category: Medical Plan: * Explained that she will likely require correction of her met adductus of her 2nd and 3rd and possibly 4th tarsometatarsal joints of her left foot, and potentially the right foot in order to properly correct her hallux valgus deformity. Orders: Orders XR Ankle Guillaume min 3V Today M24.273 - Disorder of ligament, unspecified ankle Coding Level of Care Code Est Pt Level 4 (00764) Diagnoses Hallux valgus (acquired), right foot M20.11 Hallux valgus (acquired), left foot M20.12 Ligamentous laxity of ankle, unspecified laterality M24.273 Laterality: unspecified laterality Metatarsus adductus of both feet Q66.221; Q66.222 Time Spent (min) 45
== END 2025-05-29 09:18 | disposition home or self-care (01) ==
PROVIDERS: PCP Student in an Organized Health Care Education/Training Program; Visit Provider Student in an Organized Health Care Education/Training Program
DX: M20.11 Hallux valgus (acquired), right foot (principal); M20.12 Hallux valgus (acquired), left foot; M24.273 Disorder of ligament, unspecified ankle; Q66.221 Congenital metatarsus adductus, right foot; Q66.222 Congenital metatarsus adductus, left foot
CPT/HCPCS: 99214

== ENCOUNTER 2025-05-29 10:46 | Outpatient (AMB) | payer OTHER, SELFPAY ==
--- NOTE | 2025-05-29 11:00 | A.OFFWM_ITS ---
Intake Intake Visit Reasons: OV BH Intake Allergies No Known Allergies Allergy (Verified 06/19/25 08:49) [facility] Medical History Class 1 obesity Encounter for preoperative assessment Back pain Asthma BMI 37.0-37.9, adult Obesity Surgical History (Updated 06/08/25 @ 06:54 by Shahana Shirley RN) Hx of tubal ligation Family History Father No problems noted. Mother No problems noted. Social History Housing: House Are you a primary respiratory care program director to a significant other at home: No Do you presently have visiting nurse or other home services: No Alcohol intake: current Alcohol intake frequency: holidays/special occasions only Patient Tobacco Use Status: Current someday Tobacco user Tobacco use type: Cigarette service: No Current occupational status: employed Cognitive needs: No Hearing needs: No Vision needs: Yes (rx glasses) Behavioral Health Assessment Weight Management Therapy Therapy Notes Details PT is a 39 years old female, who presents for a visit to complete BH assessment as part of surgical weight loss program. Presenting Concerns Referral Source WMP-Provider. Reason for referral Completion of behavioral health assessment as part of process for weight-loss surgery. Precipitating Event Obesity. Living Situation Current Living Situation Own At risk of losing current housing? No Satisfied with current living situation? Yes Comments PT Lives with her 2 children. Food/Weight/Diet Expectations of change PT started the program on 10/30/24 at 231Lbs, and the initial goal was to lose 10% of her weight before surgery, which is about 23lbs. Ultimate weight goal: 208lbs before surgery. PT reports her most recent weight was 194Lbs as of 05/27/25. Patient Wants to be at her healthy weight. PT is implementing the following: Current meal plan: 2 shakes, 1 bar and 1 meal at day. Exercise plan: treadmill. Scale: yes Communication with provider: yes, Wednesdays. History/Relationship with food Growing up she had to finish everything served, leading to overeat even when feeling full. In the past she has adopted unhealthy habits such as skipping meals when has busy work days. She has good eating habits in general, is not picky and tries to choose healthier food choices. At current work, her breaks are respected and her current life routine goes along to her weight-loss plan. History/Relationship with weight PT reports she has always been overweight since childhood. PT reports weight-gain with contraceptives' shot. In the last 10 years, the patient's Lowest weight was 185Lbs and highest 240Lbs. History/Relationship with dieting Gym, self-diet. OTC pills - didn't loss anything. Zepbound 2024 - Lost about 30Lbs. Binge Eating Do you frequently eat large amounts of food in short periods of time, not feeling physically hungry? No Do you feel out of control when you eat a large amount of food in a short period of time? No Do you eat large amounts of food rapidly and typically alone? No Night Eating Do you wake up at least once during the night to eat? No If you wake up in the night, do you find that it is necessary to eat something in order to fall back asleep? No Do you have little or no appetite in the morning and feel very hungry in the evening, often overeating between dinner and when you go to bed? No Social History Family history and relationship PT is single but has been from kids father 6 ago, they were together for 15 years and have 2 children. Parents are alive and they live in [place], Pt has 2 brother who also lives in [place]. Parental/Familial tie maker obligations Kids, they are 18 and 12. Developmental history and status Normal development. Currently WNL. Social support Parents, kids father. Community support some co-workers. Gnosticist/Spirituality None. Cultural/Ethnic information PT was born in [place], been in [place] 18 years ago. Legal Involvement and History Current or historical involvement with the legal system? None reported. Education Highest grade completed Some college. 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 Preferred learning style Written Currently enrolled in educational program? No Interested in further educational program? 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 No Meaningful activities phone games, outdoor activities. Financial Situation Describe current financial situation Comfortable Financial assistance? None Service Service? No Mental Health and Addiction Treatment Current/Past substance abuse? No Comments Alcohol: 1-2 times at month, 3 drinks. Cigarettes/Tobacco: None. Cannabis/Edibles: None reported. Current/Past addictive behavior concerns? No Psychiatric history The patient reports she is not currently engaged in any mental health treatment and denies any history of mental health crises or inpatient psychiatric care. She has no history or current concerns regarding suicidal ideation, suicide attempts, self-harm, or harm to others. Medical and Physical Health Summary Additional Medical History not covered in history None aditional Sexual History concerns None reported. Physical exam in the last year? Yes Pain Screening Current pain? No Pain in the last few months? Yes Comments Back pain. Medications Is the patient compliant with medications? Yes Does the patient have Chapa Guardian in place? Not applicable Does the patient use complimentary health approaches? Yes (bi-weekly apps with chiropractor. ) Trauma/Abuse History History of trauma? No Questionnaires PHQ-9 Over the last 2 weeks, how often have you been bothered by any of the following problems? 1. Little interest or pleasure in doing things: not at all 2. Feeling down, depressed, or hopeless: not at all 3. Trouble falling or staying asleep, or sleeping too much: not at all 4. Feeling tired or having little energy: not at all 5. Poor appetite or overeating: not at all 6. Feeling bad about yourself - or that you are a failure or have let yourself or your family down: not at all 7. Trouble concentrating on things, such as reading the newspaper or watching television: not at all 8. Moving or speaking so slowly that other people could have noticed. Or the opposite - being so fidgety or restless that you have been moving around a lot more than usual: not at all 9. Thoughts that you would be better off or of hurting yourself in some way: not at all Total score: 0 Depression Screening Interpretation: Negative Depression Screening Done: Yes 53512 - PHQ-9 Billing: Yes Source: Developed by Drs. Vel Ortiz, Jenny Woodward, Pablo Lindsay and colleagues, with an educational staci from [employer]. Binge Eating Scale Group 1 A. I don't feel self-conscious about my wt. or body size when I'm with others. B. I feel concerned about how I look to others, but it normally does not make me fell disappointed with myself C. I do get self-conscious about my appearance and wt. which makes me feel disappointed in myself. D. I feel very self-conscious about my wt. and frequently I feel intense shame and disgust for myself. I try to avoid social contacts because of my self- consciousness. Response Group 1: C Group 2 A. I don't have any difficulty eating slowly in the proper manner. B. Although I seem to gobble down foods, I don't end up feeling stuffed because of eating to much. C. At times, I tend to eat quickly and then, I feel uncomfortably full afterwards. D. I have the habit of bolting down my food, without really chewing it. When this happens I usually feel uncomfortably stuffed because I've eaten to much. Response Group 2: C Group 3 A. I feel capable to control my eating urges when I want to. B. I feel like I have failed to control my eating more than the average person. C. I feel utterly helpless when it comes to feeling in control of my eating urges. D. Because I feel so helpless about controlling my eating I have become very desperate about trying to get control. Response Group 3: C Group 4 A. I don't have the habit of eating when I'm bored. B. I sometimes eat when I'm bored, but often I'm able to get busy and get my mind off food. C. I have a regular habit of eating when I'm bored, but occasionally, I can use some other activity to get my mind off eating. D. I have a strong habit of eating when I'm bored. Nothing seems to help me breath the habit. Response Group 4: A Group 5 A. I'm usually physically hungry when I eat something. B. Occasionally, I eat something on impulse even though I really am not hungry. C. I have the regular habit of eating foods, that I might not really enjoy, to satisfy a hungry feeling even though physically, I don't need the food. D. Although I'm not physically hungry, I get a hungry feeling in my mouth that only seems to be satisfied when I eat a food, like sandwich, that fills my mouth. Sometimes, when I eat the food to satisfy my mouth hunger, I then spit the food out so I won't gain weight. Response Group 5: B Group 6 A. I don't feel any guilt or self-hate after I overeat. B. After I overeat, occasionally I feel guilt or self-hate. C. Almost all the time I experience strong guilt or self-hate after I overeat. Response Group 6: B Group 7 A. I don't lose total control of my eating when dieting even after periods when I overeat. B. Sometimes when I eat a forbidden food on a diet, I feel like I blew it and eat even more. C. Frequently, I have the habit of saying to myself, I've blown it now, why not go all the way, when I overeat on a diet. When that happens I eat more. D. I have a regular habit of starting a strict diets for myself but I break the diets by going on an eating binge. My life seems to be either a feast or famine. Response Group 7: A Group 8 A. I rarely eat so much food that I feel uncomfortably stuffed afterwards. B. Usually about once a month, I each such a quantity of food, I end up feeling very stuffed. C. I have regular periods during the month when I eat large amounts of food, either at mealtime or at snacks. D. I eat so much food that I regularly feel quite uncomfortable after eating and sometimes a bit nauseous. Response Group 8: B Group 9 A. My level of calorie intake does not go up very high or go down very low on a regular basis. B. Sometimes after I overeat, I will try to reduce my caloric intake to almost nothing to compensate for the excess calories I've eaten. C. I have a regular habit of overeating during the night. It seems that my routine is not to be hungry in the morning but overeat in the evening. D. In my adult years, I have had week-long periods where I practically starve myself. This follows periods when I overeat. It seems I live a life of either feast or famine. Response Group 9: A Group 10 A. I usually am able to stop eating when I want to. I know when enough is enough. B. Every so often, I experience a compulsion to eat which I can't seem to control. C. Frequently, I experience strong urges to eat which I seem unable to control, but at other times I can control my eating urges. D. I feel incapable of controlling urges to eat. I have a fear of not being able to stop eating voluntarily. Response Group 10: A Group 11 A. I don't have any problem stopping eating when I feel full. B. I usually can stop eating when I feel full but occasionally overeat leaving me feeling uncomfortably stuffed. C. I have a problem stopping eating once I start and usually I feel uncomfortably stuffed after I eat a meal. D. Because I have a problem not being able to stop eating when I want, I sometimes have to induce vomiting to relieve my stuffed feeling. Response Group 11: B Group 12 A. I seem to eat just as much when I'm with others, Family social gatherings as when I'm by myself. B. Sometimes, when I'm with other persons, I don't eat as much as I want to eat because I'm self-conscious about my eating. C. Frequently, I eat only a small amount of food when others are present, because I'm very embarrassed about my eating. D. I feel so ashamed about overeating that I pick times to overeat when I know no one will see me. I feel like a closet eater. Response Group 12: B Group 13 A. I eat three meals a day with only an occasional between meal snack. B. I eat 3 meals a day, but I also normally snack between meals. C. When I am snacking heavily, I get in the habit of skipping regular meals. D. There are regular periods when I seem to be continually eating, with no planned meals. Response Group 13: A Group 14 A. I don't think much about trying to control unwanted eating urges. B. At least some of the time, I feel my thoughts are pre-occupied with trying to control my eating urges. C. I feel that frequently I spend much time thinking about how much I ate or about trying not to eat anymore. D. It seems to me that most of my waking hours are pre-occupied by thoughts about eating or not eating. I feel like I'm constantly struggling not to eat. Response Group 14: C Group 15 A. I don't think about food a great deal. B. I have strong craving for food but they last only for brief periods of time. C. I have days when I can't seem to think about anything else but food. D. Most of my days seem to be pre-occupied with thoughts about food. I feel like I live to eat. Response Group 15: B Group 16 A. I usually know whether or not I'm physically hungry. I take the right portion of food to satisfy me. B. Occasionally, I feel uncertain about knowing whether or not I'm physically hungry. A these times it's hard to know how much food I should take to satisfy me. C. Even though I might know how many calories I should eat, I don't have any idea what is a normal amount of food for me. Response Group 16: A Binge Eating Score: 14 Score less than 17 Minimal Risk Score between 18-26 Moderate Risk Score between 27-46 High Risk Assessment & Plan Assessment & Plan (1) Adjustment disorder: Code(s): F43.20 - Adjustment disorder, unspecified (2) Pre-bariatric surgery psychological evaluation: Code(s): Z71.89 - Other specified counseling Plan Following a comprehensive behavioral health assessment?including review of the Binge Eating Scale, PHQ-9, mental status evaluation, and patient self-re port?there are currently no behavioral health contraindications to proceeding with bariatric surgery. The patient demonstrates appropriate insight, motivation, and psychological readiness for the procedure. No active psychiatric symptoms or maladaptive eating behaviors were identified that would impede surgical outcomes at this time. The patient is cleared from a behavioral health perspective to proceed with bariatric surgery and documentation can be submitted for insurance approval as indicated. PT will return for a follow-up behavioral health visit 1?4 weeks postoperatively to monitor psychological adjustment, reinforce coping strategies, and screen for any emerging concerns such as mood changes, adjustment difficulties, or disordered eating patterns. Additional behavioral health support will be provided as needed based on postoperative assessment. Next david: 1-4 weeks PO. [place] [address] Tele Psy Diag Eval Patient Type New Diagnoses Adjustment disorder F43.20 Pre-bariatric surgery psychological evaluation Z71.89 Additional Codes PHQ-9 - 78439 - PHQ-9 Billing: Yes ([id number]) Time Spent (min) 60
== END 2025-05-29 14:00 | disposition home or self-care (01) ==
LOC: HO.HBST 10:46
PROVIDERS: PCP Student in an Organized Health Care Education/Training Program; Visit Provider Counselor Mental Health
DX: F43.20 Adjustment disorder, unspecified (principal); Z71.89 Other specified counseling
CPT/HCPCS: 90791

== ENCOUNTER → 2025-05-29 12:16 | Outpatient (BNV) | payer OTHER, SELFPAY | PROVIDERS: Absent Provider Student in an Organized Health Care Education/Training Program; PCP Student in an Organized Health Care Education/Training Program; Visit Provider Radiology Diagnostic Ultrasound | DX: M77.31 Calcaneal spur, right foot (principal); M77.32 Calcaneal spur, left foot | CPT/HCPCS: 73610 ==

== ENCOUNTER 2025-06-08 06:44 | Day surgery (SDC) | payer OTHER, SELFPAY ==
--- NOTE | 2025-06-04 09:52 | P.CONAN_ITS ---
Documented by User: Amie Villarreal NP 06/04/25 09:52 HPI - Anesthesia Eval Consult details Narrative: 39yo F for Upper Endoscopy PMFSH Active Problems Active Problems: All Active Problems Metatarsus adductus of both feet (Acute) Class 1 obesity (Acute) Ankle ligament laxity (Acute) Hallux valgus (acquired), right foot (Acute) Hallux valgus (acquired), left foot (Acute) Encounter for preoperative assessment (Acute) BMI 34.0-34.9,adult (Acute) BMI 35.0-35.9,adult (Acute) BMI 36.0-36.9,adult (Acute) Back pain (Acute) Asthma (Acute) BMI 37.0-37.9, adult (Acute) Obesity (Acute) Past Medical History Medical History Class 1 obesity Encounter for preoperative assessment Back pain Asthma BMI 37.0-37.9, adult Obesity Family History Family History Father No problems noted. Mother No problems noted. Surgical History Surgical History (Updated 06/08/25 @ 06:54 by Shahana Shirley RN) Hx of tubal ligation Social History Social History Housing: House Are you a primary customer care coordinator to a significant other at home: No Do you presently have visiting nurse or other home services: No Alcohol intake: current Alcohol intake frequency: holidays/special occasions only Patient Tobacco Use Status: Current someday Tobacco user Tobacco use type: Cigarette Smoked in Last 30 Days: Yes Patient Interested in Nicotine Replacement: No Have you been hit, kicked, punched, or otherwise hurt by someone within the past year? If so, by whom?: No Are you DNR?: No Advance Directives: No Advance Directives Information Provided: Yes Poor oral hygiene: No service: No Current occupational status: employed Cognitive needs: No Hearing needs: No Vision needs: Yes (rx glasses) Meds Allergies Allergy/AdvReac Type Severity Reaction Status Date / Time No Known Allergies Allergy Verified 06/08/25 06:55 Home Medications ?Medication ?Instructions ?Recorded ?Confirmed ?Last Taken ?Type cetirizine 10 mg tablet 10 mg PO DAILY PRN allergies 10/13/24 06/08/25 06/08/25 History albuterol sulfate 90 mcg/actuation 2 puff inhalation Q 6H PRN 10/30/24 06/08/25 Unknown History aerosol inhaler Shortness Of Breath Assessment and Plan Assessment Anesthesia Assessment: Chart Reviewed Documented by User: Jasmyne Stephens MD 06/08/25 07:30 PMFSH Past Medical History Medical History Class 1 obesity Encounter for preoperative assessment Back pain Asthma BMI 37.0-37.9, adult Obesity Family History Family History Father No problems noted. Mother No problems noted. Surgical History Surgical History (Updated 06/08/25 @ 06:54 by Shahana Shirley RN) Hx of tubal ligation History of Problems with Anesthesia: No Social History Social History Housing: House Are you a primary customer care coordinator to a significant other at home: No Do you presently have visiting nurse or other home services: No Alcohol intake: current Alcohol intake frequency: holidays/special occasions only Patient Tobacco Use Status: Current someday Tobacco user Tobacco use type: Cigarette Smoked in Last 30 Days: Yes Patient Interested in Nicotine Replacement: No Have you been hit, kicked, punched, or otherwise hurt by someone within the past year? If so, by whom?: No Are you DNR?: No Advance Directives: No Advance Directives Information Provided: Yes Poor oral hygiene: No service: No Current occupational status: employed Cognitive needs: No Hearing needs: No Vision needs: Yes (rx glasses) Meds Allergies Allergy/AdvReac Type Severity Reaction Status Date / Time No Known Allergies Allergy Verified 06/08/25 06:55 Home Medications ?Medication ?Instructions ?Recorded ?Confirmed ?Last Taken ?Type cetirizine 10 mg tablet 10 mg PO DAILY PRN allergies 10/13/24 06/08/25 06/08/25 History albuterol sulfate 90 mcg/actuation 2 puff inhalation Q 6H PRN 10/30/24 06/08/25 Unknown History aerosol inhaler Shortness Of Breath Exam Airway Mallampati Class: II TM Dist: >3cm Neck ROM: Full Loose/Missing/Broken Teeth: No Heart: RRR Lungs: CTA Assessment and Plan Assessment Anesthesia Assessment: Anesthesia Plan Discussed Final Anesthetic Review History of Problems with Anesthesia: No NPO: Yes ASA Class: II Final Preanesthetic Review: Meds/Allgs Chart Reviewed, Consent Obtained/Reviewed and Anes Risks/Benef Reviewed Patient Risk: Low Procedure Risk: Intermediate Anesthetic Plan Anesthetic Plan: MAC: Disposition: Standard PACU
[2025-06-08] MEDS: Lactated Ringers 1,000 ML 80 ML IVCONT (07:02)
[2025-06-08 07:15] VITALS: BP 109/70; PULSE 99; RESP 18; TEMP 36.6; O2SAT 97
[2025-06-08 07:16] VITALS: BMI 31.9
--- NOTE | 2025-06-08 07:35 | MHC.SHP ---
Pre-Procedural Eval Section A - 24 Hr Update-Section A only Date of Service: 06/08/25 The patient is an INPATIENT: No The patient has been examined within 24 hours of the surgical procedure. The History & Physical has been completed within 30 days and I have reviewed it.: Yes Section B - Complete if H&P > 30 days Chief Complaint: Obesity, unspecified Relevant Family History (Specify if Yes): No Relevant Social History: None Present Medications: None Medical History: No relevant PMH History of Previous Operations: No relevant previous surgery Allergies: Allergies Allergy/AdvReac Type Severity Reaction Status Date / Time No Known Allergies Allergy Verified 06/08/25 06:55 Review of Systems Sugical H&P ROS: Negative: Constitution, Cardiovascular, Respiratory, Neurological, Psychiatric, Hem-Onc, Allergic/Immunologic, Gastrointestinal, Genitourinary, Musculoskeletal, Integumentary, Endocrine and Eyes/Ears/Nose/Throat Exam Surgical H&P Exam: Normal: HEENT, Normal: Heart, Normal: Lungs, Normal: Extremities, Normal: Abdomen, Normal: Skin and Normal: Neurological Plan Diagnosis/Plan: Unchanged (EGD to assess the stomach's anatomy. Risks of bleeding and perforation were discussed with the patient and she is in agreement with the plan.) I have reviewed the history and physical and performed a pertinent physical examination on my patient. No changes have occurred unless specified. Time Spent With Patient Time: Total time managing care of this patient today ____ minutes.
--- NOTE | 2025-06-08 07:36 | P.BOP_ITS ---
Brief Operative Note Date of Service: 06/08/25 Pre-op diagnosis: Obesity Post-op diagnosis: same Procedure: PROCEDURE DATE: 06/08/2025 PREOPERATIVE DIAGNOSIS: Obesity POSTOPERATIVE DIAGNOSIS: ?Same as above. Normal endoscopy PROCEDURE: Dapgddnu-ebifwq-aivpiozxwmmd with biopsies Surgeon: ?Juan Russo M.D.. Ph.D. Transfer Machine Operator: None ? Anesthesia: IV sedation Estimated blood loss: ?Minimal FINDINGS AND PROCEDURE: ? OPERATIVE INDICATIONS: ?The patient is a 39 year old female known to me who is interested in bariatric surgery. Based on this information I recommended an upper endoscopy to evaluate the patient's symptoms. Risks and complications of the surgery were discussed with the patient in advance particularly the possibility of perforation or bleeding that may require surgical intervention. The patient understood the risks and was in agreement with the plan. ? PROCEDURE: After informed consent was obtained by the patient, the patient was ?transferred to the Operating Room and was placed in the supine position.? After successful induction of IV sedation, a mouth block was inserted and the patient was placed in the left lateral decubitus position. An upper endoscopy was performed next, the oropharynx and esophagus appeared within the normal limits. There was no hiatal hernia. The z-line was smooth.. Two biopsies were obtained from the distal esophagus 2-3 cm proximal to the GE junction and two additional biopsies from the GE junction. The stomach was entered and it appeared to be of normal size. There was no gastritis. There was no stricture or ulcer. A biopsy was obtained from the gastric fundus and the antrum. No significant bleeding was noted from any of the biopsy sites. Retroflexion of the scope confirmed the presence of a normal GE junction. The scope was then advanced into the duodenum which appeared to be normal as well. At that point the duodenum ?and the stomach were decompressed and the scope was withdrawn from the patient's mouth. The patient extubated and was transferred in stable condition to the Recovery Room for further care. I was present and performed all steps of the procedure. There were no residents to assist with this case. Juan Russo M.D., Ph.D. Surgeon: Fab Russo MD Anesthesia: MAC Was an Transfer Machine Operator used for this Procedure?: No Estimated blood loss (mL): 0 IV fluids (mL): 400 Urine output (mL): 0 (No Chacko to record output) Pathology: other (1) antrum x1, 2) fundus x1, 3) GE junction x2, 4) distal esophagus x2) Condition: stable Disposition: PACU
[2025-06-08 07:58] VITALS: BP 91/55; PULSE 86; RESP 18; TEMP 36.6; O2SAT 99
[2025-06-08 08:16] VITALS: BP 102/59; PULSE 102; RESP 17; TEMP 36.6; O2SAT 98
== END 2025-06-08 08:59 | disposition home or self-care (01) ==
PROVIDERS: PCP Student in an Organized Health Care Education/Training Program; Visit Provider Surgery
PROC: 0DJ08ZZ Inspection of Upper Intestinal Tract, Via Natural or Artificial Opening Endoscopic (ICD-10-PCS; CPT 43235; principal; 2025-06-08 07:30)
DX: E66.09 Other obesity due to excess calories (principal); Z68.37 Body mass index [BMI] 37.0-37.9, adult; M54.9 Dorsalgia, unspecified; J45.909 Unspecified asthma, uncomplicated; Z79.899 Other long term (current) drug therapy
CPT/HCPCS: 43239; 88305; 88313; 88342; J2003; J2704

== ENCOUNTER → 2025-06-08 06:44 | Outpatient (BNV) | payer OTHER, SELFPAY | PROVIDERS: PCP Student in an Organized Health Care Education/Training Program; Visit Provider Surgery | DX: E66.9 Obesity, unspecified (principal); Z68.31 Body mass index [BMI] 31.0-31.9, adult | CPT/HCPCS: 43239 ==

== ENCOUNTER 2025-06-19 08:34 | Outpatient (AMB) | payer OTHER, SELFPAY ==
--- NOTE | 2025-06-19 08:47 | A.OFFVIS_ITS ---
Vital Signs 06/19/25 08:49 Height 5 ft 6 in Weight 197 lb BMI 31.8 Intake Visit Reasons: review ankle x-rays Intake Note: Christopher is a 39 year old female who presents today for a follow up on her ankle X-ray. She reports she is not using compression stocking and she has not been contacted by PT. Patient states overall she is doing well Allergies No Known Allergies Allergy (Verified 06/19/25 08:49) HPI HPI review ankle x-rays: Details: The patient is a 39-year-old female presenting with painful bunions bilateral feet and history of frequent falls due to her ankle giving out. She received ankle x-rays. She believes the bunions have been causing pain, leading her to walk with an altered gait, especially when wearing heels. She does note that however at her ankles give out when she is walking or wearing heels. She was unable to describe how often she sprains her ankles as she has not worn heels in several months. 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 - patient states that she is independent and has no support other than her 18-year-old son. [facility] Medical History Class 1 obesity Encounter for preoperative assessment Back pain Asthma BMI 37.0-37.9, adult Obesity Surgical History (Updated 06/08/25 @ 06:54 by Shahana Shirley RN) Hx of tubal ligation Family History Father No problems noted. Mother No problems noted. Social History Housing: House Are you a primary pharmacy customer care specialist to a significant other at home: No Do you presently have visiting nurse or other home services: No Alcohol intake: current Alcohol intake frequency: holidays/special occasions only Patient Tobacco Use Status: Current someday Tobacco user Tobacco use type: Cigarette service: No Current occupational status: employed Cognitive needs: No Hearing needs: No Vision needs: Yes (rx glasses) Review of Systems Const All systems reviewed & are unremarkable except as noted in HPI and below Physical Exam Vital Signs: BMI result Body Mass Index 31.8 Extrem Other: *Bilateral Lower Extremity Focused Exam Vascular: DP/PT 2/4, CFT<3s to digits, TG warm to cool, no pedal edema Derm: No open wounds or lacerations. Neuro: Protective sensation grossly intact to bilateral lower extremities. MSK: Prominent medial eminence noted bilateral feet at the first metatarsophalangeal (MTP) joint without tenderness on palpation. Tracking hallux valgus deformity. Right 1st Metatarsophalangeal joint ROM: 75 ?. No crepitus. No pain on end range of motion. No Hypermobile right first ray. Left 1st Metatarsophalangeal joint ROM: 75 ?. No crepitus. No pain on end range of motion. No appreciated Hypermobility left first ray. Functional hallux limitus on weight-bearing left foot. No forefoot adductus noted. No digital deformities. Ankle inversion 3-1 bilateral lower extremities. Negative anterior drawer sign. Results Reviewed Results Reviewed: Podiatry X-ray Read: 05/29/2025 X-ray right ankle 3 views (AP, Mortise, Lateral) reviewed which shows no fractures, dislocations, osteochondral defects, or gross abnormalities. Anatomic alignment of the tibiotalar joint. Bone density is within normal limits. No evidence of swelling, foreign body, or calcifications. I personally reviewed the imaging and my findings are listed above. Podiatry X-ray Read: 05/29/2025 X-ray left ankle 3 views (AP, Mortise, Lateral) reviewed which shows no fractures, dislocations, osteochondral defects, or gross abnormalities. Anatomic alignment of the tibiotalar joint. Bone density is within normal limits. No evidence of swelling, foreign body, or calcifications. I personally reviewed the imaging and my findings are listed above. Podiatry X-ray Read: 05/14/2025 X-ray right foot 3 views (AP, MO, Lateral) reviewed which shows 1st inter metatarsal angle 11 degrees, tibial sesamoid position 2, metatarsus adductus angle approximately 18. No joint space narrowing. Second through 4th digits are abducted. Bone density is within normal limits. No evidence of s welling, foreign body, or calcifications. I personally reviewed the imaging and my findings are listed above. Podiatry X-ray Read: 05/14/2025 X-ray left foot 3 views (AP, MO, Lateral) reviewed which shows 1st intermetatarsal angle of 6 degrees with metatarsus adductus angle of 23 degrees, true IM angle of approximately 15 degrees. Tibial sesamoid position of 2. No joint space narrowing. Second through 4th digits are abducted. Bone density is within normal limits. No evidence of swelling, foreign body, or calcifications. I personally reviewed the imaging and my findings are listed above. Assessment & Plan Assessment & Plan (1) Ankle ligament laxity: Code(s): M24.273 - Disorder of ligament, unspecified ankle Category: Medical Qualifiers: Laterality: unspecified laterality Qualified Code(s): M24.273 - Disorder of ligament, unspecified ankle Plan: * Reviewed bilateral x-rays, stress views * Recommended ankle compression sleeves to be worn when wearing heels and undergoing high impact activities. * Referred to physical therapy for strengthening and proprioceptive training. * Discussed surgical treatment in the form of lateral ankle reconstruction if conservative treatment options fail. * Patient will likely require an MRI for evaluation of lateral ankle ligaments prior to planning surgery. * Patient will follow up when she is ready to plan surgical correction. (2) Hallux valgus (acquired), right foot: Code(s): M20.11 - Hallux valgus (acquired), right foot Category: Medical Plan: * Reviewed right foot x-rays with the patient. * Discussed treatment options including bunion sleeves, orthotics, and eventually surgical intervention if her pain persists. Surgical treatment o ptions would include MIS bunionectomy versus Lapidus correction. * Discussed postop protocol for MIS bunionectomy which includes protected weight-bearing in a surgical shoe, no high impact activity for at least 3 months, and likely would be out of work for at least 1 month. * Explained that since this is her right foot, she would not be able to drive for at least 4-6 weeks after surgery. (3) Hallux valgus (acquired), left foot: Code(s): M20.12 - Hallux valgus (acquired), left foot Category: Medical Plan: * Reviewed left foot x-rays with the patient. * Discussed treatment options including bunion sleeves, orthotics, and eventually surgical intervention if her pain persists. Surgical treatment options would include 1st tarsometatarsal joint fusion, 2nd through 3rd tarsometatarsal joint correction versus MS metatarsal osteotomies. * Discussed postop protocol would include nonweightbearing for 6 weeks followed by protected weight-bearing for another 4-6 weeks. No high impact activities for at least 3 months. (4) Metatarsus adductus of both feet: Code(s): Q66.221 - Congenital metatarsus adductus, right foot; Q66.222 - Congenital metatarsus adductus, left foot Category: Medical Plan: * Explained that she will likely require correction of her met adductus of her 2nd and 3rd and possibly 4th tarsometatarsal joints of her left foot, and potentially the right foot in order to properly correct her hallux valgus deformity. Coding Level of Care Code Est Pt Level 3 (11385) Diagnoses Ligamentous laxity of ankle, unspecified laterality M24.273 Laterality: unspecified laterality Hallux valgus (acquired), right foot M20.11 Hallux valgus (acquired), left foot M20.12 Metatarsus adductus of both feet Q66.221; Q66.222 Time Spent (min) 25
[2025-06-19 08:49] VITALS: BMI 31.8
== END 2025-06-19 09:00 | disposition home or self-care (01) ==
LOC: HO.HPODS 08:34
PROVIDERS: PCP Student in an Organized Health Care Education/Training Program; Visit Provider Student in an Organized Health Care Education/Training Program
DX: M24.273 Disorder of ligament, unspecified ankle (principal); Q66.221 Congenital metatarsus adductus, right foot; Q66.222 Congenital metatarsus adductus, left foot
CPT/HCPCS: 99213